=== PATIENT | male | born 1975 | race Caucasian/White ===

== ENCOUNTER 2024-12-12 12:55 | Emergency (ER) | payer MEDICARE, SELFPAY ==
[2024-12-12 12:56] VITALS: BP 146/95; PULSE 84; TEMP 36.5; O2SAT 97; BMI 21.2
--- NOTE | 2024-12-12 13:29 | ED_ITS ---
HPI - Back Pain/Injury General: Chief Complaint: Back Pain/Injury Stated Complaint: back pain Time Seen by Provider: 12/12/24 13:04 Source: patient Mode of arrival: ambulatory Limitations: no limitations History of Present Illness: Patient is a 49-year-old male presents to ED today with a complaint of back pain. He states he has a longstanding history of back pain reporting previous diagnoses of degenerative back disease and spinal stenosis. He states he was supposed to have surgery on his back in 2019 but then COVID hit and his surgery got canceled. Patient states he intermittently will have flares of his chronic lower back pain. He states recently he was changing tires on a trailer and woke up yesterday with severe pain. He is ambulating here with the help of a cane. He denies any saddle anesthesia or bowel or bladder incontinence/retention. He is not having fevers. MD elicited complaint: back pain Pertinent past history: prior back pain Onset (ago): day(s) Timing: constant Severity: severe Similar Symptoms Previously: Yes Quality: sharp and stabbing Location: lumbar spine Radiation: none Exacerbating factors: movement and walking Relieving factors: none Associated symptoms: Reports no associated symptoms and difficulty walking (due to pain in back); Deny abdominal pain, chills, dysuria, fatigue, fever(s) or hematuria Work related injury: No Related Data Previous Rx's ?Medication ?Instructions ?Recorded hydrocodone 5 mg-acetaminophen 325 1 tab PO Q6H PRN pa in #14 tabs 12/12/24 mg tablet ibuprofen 800 mg tablet 800 mg PO Q8H PRN pain #20 t abs 12/12/24 methocarbamol 500 mg tablet 1,000 mg (2 x 500 mg) PO Q 8H #30 12/12/24 tabs methylprednisolone 4 mg tablets in See Rx Instructions PO .COMPLEX 12/12/24 a dose pack (Medrol (Dmitri)) #21 ea Allergies Allergy/AdvReac Type Severity Reaction Status Date / Time No Known Allergies Allergy Verified 12/12/24 13:05 Review of Systems Const: Denies: fever(s), chills, body aches, fatigue or malaise Card: Denies: chest pain Resp: Denies: dyspnea GI: Denies: abdominal pain : Denies: flank pain, dysuria, urinary incontinence or hematuria Musc: Reports: back pain; Denies: neck pain, extremity pain, extremity swelling, joint pain, joint swelling or joint redness Skin/Breast: Denies: rash Neuro: Reports: difficulty walking (due to pain in back); Denies: headache(s), numbness in extremities, weakness in extremities, sensory changes or dizziness Physical Exam Const: COMMON NORMALS: no acute distress, patient oriented x3, no limitations, alert and well nourished GENERAL APPEARANCE: cooperative and appears older than stated age ORIENTATION/CONSCIOUSNESS: Yes awake, Yes oriented to person, Yes oriented to place and Yes oriented to time Resp: COMMON NORMALS: normal respiratory effort and clear to auscultation bilaterally AUSCULTATION: clear to auscultation bilaterally Cardio: COMMON NORMALS: regular rate and regular rhythm RATE: regular rate RHYTHM: regular rhythm GI: COMMON NORMALS: Normal to inspection, nondistended, normoactive bowel sounds present, Soft to palpation, non-tender and no masses PALPATION: Yes Soft to palpation : COMMON NORMALS: Yes no CVA tenderness BLADDER/KIDNEY EXAM: Yes no CVA tenderness Back/Pelvis: COMMON NORMALS: no CVA tenderness and straight leg raise negative bilaterally LUMBAR SPINE/LOWER BACK: Yes ROM limited (due to pain), Yes pain with ROM, Yes lumbar spinal tenderness, Yes paraspinal muscle tenderness Lumbar paraspinal muscle tenderness: right, Yes paraspinal muscle spasm, No mass present and No Lumbar scoliosis PELVIS: Yes buttocks normal and No sciatic notch tenderness SACROILIAC JOINTS: Yes SI joints normal SACRUM: no tenderness COCCYX: no tenderness Extremity: COMMON NORMALS: normal to inspection, capillary refill normal, no clubbing, cyanosis or edema, no calf tenderness and no pedal edema GENERAL: Yes normal exam except as noted Neuro: COMMON NORMALS: patient oriented x3, moves all extremities, no focal motor deficits and no sensory deficits noted SENSORIUM/ORIENTATION: Yes alert, Yes oriented to person, Yes oriented to place and Yes oriented to time Course Vital Signs: Vital signs: Vital Signs Temperature 97.7 F 12/12/24 12:56 Pulse Rate 91 12/12/24 14:50 Respiratory Rate 19 H 12/12/24 14:31 Blood Pressure 131/85 12/12/24 14:50 Pulse Oximetry 99 12/12/24 14:50 Oxygen Delivery Me thod Room Air 12/12/24 13:48 MDM - Back Pain/Injury Medical Decision Making Patient feels better on re-examination after IV medication. He has no red flags on history or physical examination. He is requesting referral to Dr. Patiño which I think is reasonable. Recommend how he most likely will need MRI imaging. Return to ED precautions discussed. Medical Records I reviewed the patient's medical records. No radiology studies performed this visit Discharge Plan Discharge Patient Disposition: Home Clinical Impression: Severe low back pain Condition: Stable Prescriptions: New methocarbamol 500 mg tablet 1,000 mg PO Q8H Qty: 30 0RF ibuprofen 800 mg tablet 800 mg PO Q8H PRN (Reason: pain) Qty: 20 0RF hydrocodone-acetaminophen 5-325 mg tablet 1 tab PO Q6H PRN (Reason: pain) Qty: 14 0RF methylprednisolone [Medrol (Dmitri)] 4 mg tablets,dose pack See Rx Instructions .ROUTE .COMPLEX Qty: 21 0RF Rx Instructions: orally per package directions Discharge Orders: Discharge ED (Routine); Ordered 12/12/24 Ordered By: Camryn Rangel Referrals: Liliana Payan FNP [Primary Care Provider] Patient Instructions: Acute Low Back Pain (ED), Opioid Safety, Pain Management Activity Restrictions/Additional Instructions: As we discussed, case management should contact you to help set you up with a follow-up appointment with Dr. Patiño for further evaluation of your back pain and probable further imaging including MRI. You need to return to the emergency department for onset of worsening back pain, inability to ambulate, weakness to your legs, episodes of urinary or fecal incontinence/retention, or any other concerns you may have. Print Language: Tamazight Coding Level of Care Code ED [employer] for [employer] Aguilar
[2024-12-12] MEDS: morphine 4 mg/mL SDV 1 mL IVP (13:40)
[2024-12-12] MEDS: ketorolac 30 mg/mL INJ IVP (13:40)
[2024-12-12] MEDS: orphenadrine 30 mg/mL Inj 2 mL 60 MG IVP (13:40)
[2024-12-12] MEDS: dexamethasone 4 mg/mL INJ 8 MG IVP (13:40)
[2024-12-12 13:48] VITALS: BP 133/81; PULSE 102; RESP 16; O2SAT 96
[2024-12-12 14:00] VITALS: BP 129/92; PULSE 89; O2SAT 96
[2024-12-12 14:31] VITALS: BP 131/85; PULSE 91; RESP 19; O2SAT 94
[2024-12-12 14:50] VITALS: BP 131/85; PULSE 91; O2SAT 99
--- NOTE | 2024-12-14 07:14 | DCPLANNER ---
Message sent to Ortho Referral Dr. Patiño -Patient feels better on re-examination after IV medication. He has no red flags on history or physical examination. He is requesting referral to Dr. Patiño which I think is reasonable. Recommend how he most likely will need MRI imaging. Return to ED precautions discussed.
== END 2024-12-12 14:51 | disposition home or self-care (01) ==
PROVIDERS: Emergency Provider Physician Assistant; PCP Nurse Practitioner Family
DX: M54.50 Low back pain, unspecified (principal)
CPT/HCPCS: 96374; 96375; 99284; J1100; J1885; J2270; J2360

== ENCOUNTER → 2024-12-22 14:00 | Outpatient (BNVA) | payer MEDICARE, SELFPAY | PROVIDERS: PCP Nurse Practitioner Family; Visit Provider Orthopaedic Surgery | DX: M48.062 Spinal stenosis, lumbar region with neurogenic claudication (principal); M54.9 Dorsalgia, unspecified | CPT/HCPCS: 72110; 99203 ==

== ENCOUNTER 2025-01-04 13:55 | Outpatient (CLI) | payer MEDICARE, SELFPAY ==
--- NOTE | 2025-01-04 13:45 | MR_ITS ---
WS: [id number] MRI LUMBAR SPINE NONCONTRAST HISTORY: Chronic low back pain. RIGHT leg radiculopathy. Difficulty ambulating. COMPARISON: None available. TECHNIQUE: Sagittal and axial multisequence imaging is submitted. Central canal stenosis at C3-4. Thoracic spine disc protrusions at T5-6, T6-7, T7-8 and T8-9. No cord compression. Severe degenerative disc space narrowing. Endplate osteophytes with erosions. Large osteophytes. Retrolisthesis of the L2 and L3 by 4 mm. Heterogeneous marrow edema from fatty marrow replacement. Conus terminates normally at L1-2 disc level. L1-L2: Mild bilateral foraminal stenosis. L2-L3: Marked osteophytic ridging with annular disc bulging. Osteophyte encroachment upon the ventral thecal sac effacing CSF. Mild central with moderate subarticular recess and moderate bilateral foraminal stenosis. Stenosis due to combination of disc and osteophyte disease. Most significant contact on the traversing L3 nerve roots. L3-L4: Marked osteophytic ridging with disc bulging, ligamentum flavum and facet arthritis. Moderate central and subarticular recess stenosis. Osteophyte contact on the traversing L4 nerve roots. Severe RIGHT and moderate LEFT foraminal stenosis. L4-L5: Diffuse annular disc bulging with a central disc protrusion. Vertebral body osteophytosis. Bilateral foraminal disc protrusions. Ligamentum flavum hypertrophy and facet arthritis. Severe central, bilateral subarticular recess and foraminal stenosis. L5-S1: Diffuse annular disc bulging. Mild disc contact on the S1 nerve roots. Moderate RIGHT and severe LEFT foraminal stenosis. Well-circumscribed low signal mass in the RIGHT renal pelvis measures 1.8 cm. This is noted to be a renal calcification on a prior CT from 2019. There is dilatation of the RIGHT renal pelvis and calyces. Calyceal dilatation is new since 2019. MR/MR lumbar spine wo con* [id number] IMPRESSION: 1. Multilevel severe stenosis throughout the lumbar spine. Severe degenerative disc disease, osteophytosis, facet and ligamentum flavum disease at multiple l evels. 2. 4 mm retrolisthesis of L2 and L3. 3. L4-5: Severe central, bilateral subarticular recess and foraminal stenosis. 4. L5-S1: Severe LEFT and moderate RIGHT foraminal stenosis. Very mild disc co ntact on the S1 nerve roots. 5. L3-4: Moderate central and bilateral subarticular recess stenosis. Severe R IGHT and moderate LEFT foraminal stenosis. 6. L2-3: Moderate subarticular recess and bilateral foraminal stenosis. Mild c entral stenosis. 7. Calcification in the RIGHT renal pelvis measures 1.8 cm. Calcification is c ausing a mild hydronephrosis and dilatation of the calyces. Consider evaluation by urology and/or follow-up noncontrast CT abdomen and pelvis.
== END 2025-01-04 13:56 | disposition home or self-care (01) ==
LOC: RAD 13:55
PROVIDERS: PCP Nurse Practitioner Family; Visit Provider Orthopaedic Surgery
DX: M48.061 Spinal stenosis, lumbar region without neurogenic claudication (principal); M51.369 Other intervertebral disc degeneration, lumbar region without mention of lumbar back pain or lower extremity pain; M25.78 Osteophyte, vertebrae; M47.896 Other spondylosis, lumbar region; M24.28 Disorder of ligament, vertebrae; M43.16 Spondylolisthesis, lumbar region; M48.07 Spinal stenosis, lumbosacral region; N28.89 Other specified disorders of kidney and ureter; N13.30 Unspecified hydronephrosis; M48.02 Spinal stenosis, cervical region; M51.24 Other intervertebral disc displacement, thoracic region; R60.0 Localized edema; R93.7 Abnormal findings on diagnostic imaging of other parts of musculoskeletal system; M51.26 Other intervertebral disc displacement, lumbar region; M51.379 Other intervertebral disc degeneration, lumbosacral region without mention of lumbar back pain or lower extremity pain
CPT/HCPCS: 72148